=== PATIENT | female | born 1995 | race Caucasian/White ===

== ENCOUNTER 2018-11-08 05:05 | Emergency (ER) | payer SELFPAY ==
[~2018-11-08] VITALS: Ht 167.6 cm; Wt 59.0 kg
[2018-11-08] MEDS ORDERED: DICYCLOMINE 10 MG (BENTYL) CAP PO STA (05:19)
[2018-11-08] MEDS ORDERED: PANTOPRAZOLE 40 MG (PROTONIX) VIAL IV STA (05:19)
[2018-11-08] MEDS ORDERED: NS IV 1000 ML 1,000 ML IV STA (05:19)
[2018-11-08] MEDS ORDERED: ONDANSETRON 4 MG/2 ML (SDV) Z0FRAN IVP STA (05:19)
--- NOTE | 2018-11-08 05:28 | ED Abdominal Pain ---
General Chief Complaint: Abdominal/GI Problems Stated Complaint: LOWER ABD PAIN Source of Information: Patient (CODY GALVIN MD) History of Present Illness Date Seen by Provider: Nov 08, 2018 Time Seen by Provider: 05:09 Initial Comments 23 yo F presenting with complaints of abdominal pain with nausea and vomiting since yesterday. She states the pain is sharp and cramping in nature. It is more in the middle of her abdomen and is worse with eating and palpation. She denies fever or chills. She has no pain with urination or bowel movements. She has no diarrhea and no dark tarry stools or blood in stool. She denies vaginal discharge or vaginal bleeding. her LMP was 3 weeks ago. She has tried Ibuprofen for the pain but it was not helping. She takes OTC pepcid for acid reflux but it was not helping her pain either. (CODY GALVIN MD) Allergies and Home Medications Allergies Coded Allergies: Penicillins (Verified Allergy, Unknown, 11/08/18) Patient Home Medication List Home Medication List Reviewed: Yes (CODY GALVIN MD) Review of Systems Review of Systems Constitutional: No chills, No fever; malaise EENTM: No Symptoms Reported Respiratory: No Symptoms Reported Cardiovascular: No Symptoms Reported Gastrointestinal: See HPI Genitourinary: See HPI Musculoskeletal: no symptoms reported Skin: no symptoms reported Psychiatric/Neurological: No Symptoms Reported (CODY GALVIN MD) Past Fwrsdub-Nitecl-Yjzons Hx Past Med/Social Hx: Reviewed Nursing Past Med/Soc Hx (CODY GALVIN MD) Patient Social History Recent Foreign Travel: No Contact w/Someone Who Travel: No (CODY GALVIN MD) Past Medical History Section (CODY GALVIN MD) Physical Exam Vital Signs Vital Signs - First Documented 11/08/18 05:16 Temp 98.2 Pulse 76 B/P (MAP) 109/70 (83) Pulse Ox 98 O2 Delivery Room Air (BEBA GUZMAN DO) Vital Signs Capillary Refill : (CODY GALVIN MD) Height/Weight/BMI Height: '" Weight: lbs. oz. kg; BMI Method: General Appearance: WD/WN, no apparent distress HEENT: PERRL/EOMI, normal ENT inspection, pharynx normal Neck: non-tender, full range of motion, supple, normal inspection Respiratory: chest non-tender, lungs clear, normal breath sounds Cardiovascular: normal peripheral pulses, regular rate, rhythm Gastrointestinal: normal bowel sounds, soft, no pulsatile mass; No distended, No guarding, No rebound; tenderness (epigastric and suprapubic); No mass Rectal: deferred Extremities: normal range of motion, non-tender, normal inspection Neurologic/Psychiatric: alert, normal mood/affect, oriented x 3 Skin: normal color, warm/dry (CODY GALVIN MD) Progress/Results/Core Measures Results/Orders Lab Results Laboratory Tests Test 11/08/18 05:20 Range/Units White Blood Count 5.7 4.3-11.0 10^3/uL Red Blood Count 4.13 L 4.35-5.85 10^6/uL Hemoglobin 12.8 11.5-16.0 G/DL Hematocrit 38 35-52 % Mean Corpuscular Volume 93 80-99 FL Mean Corpuscular Hemoglobin 31 25-34 PG Mean Corpuscular Hemoglobin Concent 33 32-36 G/DL Red Cell Distribution Width 12.1 10.0-14.5 % Platelet Count 188 130-400 10^3/uL Mean Platelet Volume 10.6 H 7.4-10.4 FL Neutrophils (%) (Auto) 45 42-75 % Lymphocytes (%) (Auto) 46 H 12-44 % Monocytes (%) (Auto) 6 0-12 % Eosinophils (%) (Auto) 3 0-10 % Basophils (%) (Auto) 1 0-10 % Neutrophils # (Auto) 2.6 1.8-7.8 X 10^3 Lymphocytes # (Auto) 2.6 1.0-4.0 X 10^3 Monocytes # (Auto) 0.3 0.0-1.0 X 10^3 Eosinophils # (Auto) 0.1 0.0-0.3 10^3/uL Basophils # (Auto) 0.1 0.0-0.1 10^3/uL Urine Color YELLOW Urine Clarity CLEAR Urine pH 6 5-9 Urine Specific [place] 1.020 1.016-1.022 Urine Protein NEGATIVE NEGATIVE Urine Glucose (UA) NEGATIVE NEGATIVE Urine Ketones NEGATIVE NEGATIVE Urine Nitrite NEGATIVE NEGATIVE Urine Bilirubin NEGATIVE NEGATIVE Urine Urobilinogen NORMAL NORMAL MG/DL Urine Leukocyte Esterase NEGATIVE NEGATIVE Urine RBC (Auto) NEGATIVE NEGATIVE Urine RBC NONE /HPF Urine WBC NONE /HPF Urine Squamous Epithelial Cells 2-5 /HPF Urine Crystals NONE /LPF Urine Bacteria NEGATIVE /HPF Urine Casts NONE /LPF Urine Mucus NEGATIVE /LPF Urine Culture Indicated NO Urine Test NEGATIVE NEGATIVE Sodium Level 141 135-145 MMOL/L Potassium Level 3.9 3.6-5.0 MMOL/L Chloride Level 105 98-107 MMOL/L Carbon Dioxide Level 24 21-32 MMOL/L Anion Gap 12 5-14 MMOL/L Blood Urea Nitrogen 8 7-18 MG/DL Creatinine 0.78 0.60-1.30 MG/DL Estimat Glomerular Filtration Rate > 60 BUN/Creatinine Ratio 10 Glucose Level 101 70-105 MG/DL Calcium Level 9.2 8.5-10.1 MG/DL Corrected Calcium 9.0 8.5-10.1 MG/DL Total Bilirubin 0.7 0.1-1.0 MG/DL Aspartate Amino Transf (AST/SGOT) 15 5-34 U/L Alanine Aminotransferase (ALT/SGPT) 13 0-55 U/L Alkaline Phosphatase 44 40-136 U/L Total Protein 7.5 6.4-8.2 GM/DL Albumin 4.3 3.2-4.5 GM/DL Lipase 36 8-78 U/L (BEBA GUZMAN DO) My Orders Orders - BEBA GUZMAN DO Ct Abdomen/Pelvis W (11/08/18 06:13) Hydrocodone/Apap 5/325 Tablet (Lortab 5 (11/08/18 06:15) Ketorolac Injection (Toradol Injection) (11/08/18 06:15) Iohexol Injection (Omnipaque 350 Mg/Ml 1 (11/08/18 06:30) Received Contrast (Hold Metformin- Contr (11/08/18 06:30) Sodium Chloride Flush (Catheter Flush Sy (11/08/18 06:30) Ns (Ivpb) (Sodium Chloride 0.9% Ivpb Bag (11/08/18 06:30) (BEBA GUZMAN DO) Medications Given in ED Current Medications Medications Dose Ordered Sig/Mar[place] Route Start Time Stop Time Status Last Admin Dose Admin Acetaminophen/ Hydrocodone Bitart 1 tab ONCE ONCE PO 11/08/18 06:15 11/08/18 06:16 DC 11/08/18 06:19 1 TAB Iohexol 100 ml ONCE ONCE IV 11/08/18 06:30 11/08/18 06:31 DC 11/08/18 06:59 100 ML Ketorolac Tromethamine 15 mg ONCE ONCE IVP 11/08/18 06:15 11/08/18 06:16 DC 11/08/18 06:19 15 MG Sodium Chloride 10 ml NEEDED PRN IV 11/08/18 06:30 11/08/18 07:00 10 ML Sodium Chloride 100 ml ONCE ONCE IV 11/08/18 06:30 11/08/18 06:31 DC 11/08/18 07:00 80 ML (BEBA GUZMAN DO) Vital Signs/I&O 11/08/18 05:16 Temp 98.2 Pulse 76 B/P (MAP) 109/70 (83) Pulse Ox 98 O2 Delivery Room Air (BEBA GUZMAN DO) Progress Progress Note #1: Time: 05:16 Progress Note check labs and urinalysis. Will give IVF for hydration, Bentyl and protonix for pain, Zofran for nausea. Progress Note #2: Time: 06:00 Progress Note Care passed to Dr. Guzman at shift change pending labs and final disposition. CBC does not show any acute abnormality to account for her symptoms. UA is also normal and negative test. (CODY GALVIN MD) Progress Note : Progress Note Megan - tanesha care at 6 AM and I went over labs and urinalysis with patient and told her that all the results are normal this time. She says she is still having considerable pain primarily in her umbilical and left lower quadrant region and should have tenderness to palpation. Given she hasn't had any improvement in her pain and she has pain on exam I went ahead and did a CT which showed no acute findings however she does have considerable constipation. I discussed treatment for this and all incidental findings and the need for follo w-up. I told patient to try magnesium citrate and MiraLAX and Dulcolax [id number] as well as enemas to get herself cleaned out and then follow primary care provider in 2-3 days and come back to the ED sooner if worsening pain fevers vomiting or other general concerns. Patient aware and agreeable with plan for discharge and verbalized understanding of the need for follow-up and strict ER return precautions discussed as above. (MEGAN,BEBA M DO) Transfer of Care Time: 06:00 Care transferred to: Dr. Guzman pending labs and final disposition (CODY GALVIN MD) Departure Impression Primary Impression: Epigastric abdominal pain Additional Impressions: Abdominal pain Constipation Disposition: HOME, SELF-CARE Condition: Stable Departure-Patient Inst. Referrals: NO,LOCAL PHYSICIAN (PCP) Primary Care Physician Patient Instructions: Constipation, Adult (DC) Add. Discharge Instructions: All discharge instructions reviewed with patient and/or family. Voiced understanding. Use OTC Dulcolax, Magnesium Citrate, and Miralax. You can also use enemas. Come back with any concerns. Thank you! Scripts Dicyclomine HCl (Bentyl) 20 Mg/2 Ml Inj 20 MG PO TID PRN for PAIN-MODERATE TO SEVERE, #14 TAB Prov: BEBA GUZMAN DO 11/08/18 Work/School Note: Work Release Form Date Seen in the Emergency Department: Nov 08, 2018 Return to Work: Nov 09, 2018 CODY GALVIN MD Nov 08, 2018 05:28 BEBA GUZMAN DO Nov 08, 2018 07:51
[2018-11-08] MEDS ORDERED: DICYCLOMINE 10 MG/ML (BENTYL) 2 ML AMP IM STA (05:32)
[2018-11-08 05:36] LABS: BASOPHILS % (AUTO) 1 % (0-10); EOSINOPHILS % (AUTO) 3 % (0-10); HEMATOCRIT 38 % (35-52); HEMOGLOBIN 12.8 G/DL (11.5-16.0); LYMPHOCYTES % (AUTO) 46 % (12-44); MEAN CORPUSCULAR HEMOGLOBIN 31 PG (25-34); MEAN CORPUSCULAR HGB CONC 33 G/DL (32-36); MEAN CORPUSCULAR VOLUME 93 FL (80-99); MEAN PLATELET VOLUME 10.6 FL (7.4-10.4); MONOCYTES % (AUTO) 6 % (0-12); NEUTROPHILS % (AUTO) 45 % (42-75); PLATELET COUNT 188 10^3/uL (130-400); RED CELL DISTRIBUTION WIDTH 12.1 % (10.0-14.5); WHITE BLOOD COUNT 5.7 10^3/uL (4.3-11.0)
[2018-11-08 05:37] LABS: BASOPHILS # (AUTO) 0.1 10^3/uL (0.0-0.1); EOSINOPHILS # (AUTO) 0.1 10^3/uL (0.0-0.3); LYMPHOCYTES # (AUTO) 2.6 X 10^3 (1.0-4.0); MONOCYTES # (AUTO) 0.3 X 10^3 (0.0-1.0); NEUTROPHILS # (AUTO) 2.6 X 10^3 (1.8-7.8)
[2018-11-08 05:42] LABS: BACTERIA,URINE NEGATIVE /HPF; BILIRUBIN,URINE NEGATIVE (NEGATIVE); CLARITY,URINE CLEAR; COLOR,URINE YELLOW; GLUCOSE, URINE (UA) NEGATIVE (NEGATIVE); KETONES,URINE NEGATIVE (NEGATIVE); LEUKOCYTE ESTERASE ,URINE NEGATIVE (NEGATIVE); NITRITE,URINE NEGATIVE (NEGATIVE); PH,URINE 6 (5-9); PROTEIN,URINE NEGATIVE (NEGATIVE); UROBILINOGEN,URINE NORMAL (NORMAL)
[2018-11-08 05:43] LABS: HCG,QUALITATIVE URINE NEGATIVE (NEGATIVE)
[2018-11-08 05:57] LABS: BUN/CREATININE RATIO 10; CALCIUM 9.2 MG/DL (8.5-10.1); CARBON DIOXIDE 24 MMOL/L (21-32); CHLORIDE 105 MMOL/L (98-107); CREATININE SERUM 0.78 MG/DL (0.60-1.30); GFR ESTIMATED > 60; GLUCOSE 101 MG/DL (70-105); POTASSIUM 3.9 MMOL/L (3.6-5.0); SODIUM 141 MMOL/L (135-145)
[2018-11-08 05:58] LABS: ALANINE AMINOTRANSFERASE 13 U/L (0-55); ALBUMIN 4.3 GM/DL (3.2-4.5); ALKALINE PHOSPHATASE 44 U/L (40-136); BILIRUBIN,TOTAL 0.7 MG/DL (0.1-1.0); LIPASE 36 U/L (8-78); TOTAL PROTEIN 7.5 GM/DL (6.4-8.2)
[2018-11-08] MEDS ORDERED: KETOROLAC 15 MG/ML VIAL IVP ONE (06:15)
[2018-11-08] MEDS ORDERED: HYDROcodone/APAP 5 MG/325 MG (LORTAB) TAB PO ONE (06:15)
[2018-11-08] MEDS ORDERED: HOLD METFORMIN - RECEIVED CONTRAST 20 ML VIAL IV SCH (06:30)
[2018-11-08] MEDS ORDERED: CATHETER FLUSH 10 ML SYR IV PRN (06:30)
[2018-11-08] MEDS ORDERED: IOHEXOL 350 MG/ML 100 ML (OMNIPAQUE 350) VIAL IV ONE (06:30)
[2018-11-08] MEDS ORDERED: NS 100 ML (IVPB) BAG IV ONE (06:30)
--- NOTE | 2018-11-08 06:55 | NUR ---
Report from Valentina HARRIS. Pt is in CT.
--- NOTE | 2018-11-08 07:05 | NUR ---
Returned from CT, pt states doing better. Pain rated "6"/10 down from "10"/10. SL intact
--- NOTE | 2018-11-08 07:32 | Diagnostic Imaging Report ---
PROCEDURE: CT abdomen and pelvis with contrast. TECHNIQUE: Multiple contiguous axial images were obtained through the abdomen and pelvis after administration of intravenous contrast. Auto Exposure Controls were utilized during the CT exam to meet ALARA standards for radiation dose reduction. INDICATION: Nausea and vomiting with abdominal pain. FINDINGS: Lung bases are clear. There is hepatomegaly with hepatic steatosis. Gallbladder and bile ducts are not dilated. The pancreas and spleen appear normal. The adrenal glands and kidneys are normal. There is normal enhancement of the abdominal organs and vessels following IV contrast. The stomach is not distended. There is some thickening of the gastric wall, though this may be due to lack of distention. Gastroenteritis cannot be excluded. The small bowel is fluid-filled though does not appear obstructed. Colon shows considerable stool throughout from the cecum to the rectum. No intra-abdominal adenopathy of pathologic size. Appendix is normal. No evidence of diverticulitis. There does appear to be mild pelvic venous congestion. No bony lesion. IMPRESSION: 1. Considerable stool throughout the colon from the cecum to the rectum consistent with constipation. 2. Fluid-filled loops of small bowel consistent with ileus without evidence of transition zone to suggest small bowel obstruction. 3. Appendix is visualized and normal. 4. Hepatomegaly with hepatic steatosis. Dictated by: Dictated on workstation # [id number]
[2018-11-08] MEDS ORDERED: DCCL10A2 PO (07:51)
[2018-11-08 07:55] VITALS: BP 96/61
--- NOTE | 2018-11-08 07:55 | NUR ---
Pt discharged to home after review of home instructions verbalized as understood. Pt has Rx script handed to her and work note release till tomorrow.
== END 2018-11-08 07:55 | disposition home or self-care (01) ==
LOC: ER FS 05:08
DX: K59.00 Constipation, unspecified (principal); R10.13 Epigastric pain; K21.9 Gastro-esophageal reflux disease without esophagitis; Z88.0 Allergy status to penicillin
CPT/HCPCS: 36415; 74177; 80053; 81000; 83690; 84703; 85025

== ENCOUNTER 2019-11-17 10:57 | Emergency (ER) | payer SELFPAY ==
[~2019-11-17] VITALS: Ht 195.5 cm; Wt 63.3 kg
[~2019-11-17 10:57] MED LIST: DCCL10A2 PO
[2019-11-17 11:00] VITALS: BP 117/65
--- NOTE | 2019-11-17 11:20 | ED GU-Female ---
General Chief Complaint: Female Reproductive Stated Complaint: ABD PAIN;BLOODY URINE;POSITIVE PREG. TEST 11/15 Source: patient Exam Limitations: no limitations History of Present Illness Date Seen by Provider: Nov 17, 2019 Time Seen by Provider: 11:12 Initial Comments 24-year-old female presents with dysuria, what looks like blood in her urine. I'm lower abdominal cramping especially his suprapubic. She reports she took a home test yesterday that she thinks might have been positive. She denies any nausea vomiting fevers chills or other systemic complaints. Her last menstrual period was 10/16/19. Allergies and Home Medications Allergies Coded Allergies: Penicillins (Verified Allergy, Unknown, 11/08/18) Home Medications Famotidine 20 Mg Tablet, 20 MG PO DAILY, (Reported) Multivitamin 1 Each Tablet, 1 EACH PO DAILY, (Reported) Patient Home Medication List Home Medication List Reviewed: Yes Review of Systems Review of Systems Constitutional: No chills, No fever; malaise Respiratory: no symptoms reported Cardiovascular: no symptoms reported Gastrointestinal: see HPI; No constipation, No nausea, No vomiting Genitourinary: see HPI, burning, hematuria LMP: Oct 16, 2019 Musculoskeletal: no symptoms reported Skin: no symptoms reported Psychiatric/Neurological: No Symptoms Reported Endocrine: No Symptoms Reported Past Yhwybxh-Nxhxeb-Odurfu Hx Past Med/Social Hx: Reviewed Nursing Past Med/Soc Hx Patient Social History Alcohol Use: Denies Use Recreational Drug Use: No Smoking Status: Never a Smoker 2nd Hand Smoke Exposure: No Recent Hopitalizations: No Physical Abuse: No Sexual Abuse: No Mistreated: No Fear: No Seasonal Allergies Seasonal Allergies: No Past Medical History Surgeries: Yes (C/S x 1) Section Respiratory: No Cardiac: No Neurological: No Hx : 1 Hx Para: 1 Genitourinary: No Gastrointestinal: Yes Gastroesophageal Reflux, Hiatal Hernia Musculoskeletal: No Endocrine: No HEENT: No Cancer: No Psychosocial: No Integumentary: No Blood Disorders: No Physical Exam Vital Signs Vital Signs - First Documented 11/17/19 11:00 Temp 37.2 Pulse 107 Resp 20 B/P (MAP) 117/65 (82) Pulse Ox 100 O2 Delivery Room Air Capillary Refill : Height, Weight, BMI Height: 5'6.00" Weight: 130lbs. oz. 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, no motor/sensory deficits, oriented x 3 Skin: normal color, warm/dry Lymphatic: no adenopathy Progress/Results/Core Measures Suspected Sepsis SIRS Temperature: Pulse: Respiratory Rate: Blood Pressure / Mean: Results/Orders Lab Results Laboratory Tests Test 11/17/19 11:05 Range/Units Urine Color YELLOW Urine Clarity CLEAR Urine pH 6.0 5-9 Urine Specific [place] 1.025 H 1.016-1.022 Urine Protein NEGATIVE NEGATIVE Urine Glucose (UA) NEGATIVE NEGATIVE Urine Ketones NEGATIVE NEGATIVE Urine Nitrite NEGATIVE NEGATIVE Urine Bilirubin NEGATIVE NEGATIVE Urine Urobilinogen 0.2 < = 1.0 MG/DL Urine Leukocyte Esterase NEGATIVE NEGATIVE Urine RBC (Auto) 3+ H NEGATIVE Urine RBC 10-25 H /HPF Urine WBC NONE /HPF Urine Squamous Epithelial Cells 0-2 /HPF Urine Crystals NONE /LPF Urine Bacteria NONE /HPF Urine Casts NONE /LPF Urine Mucus TRACE /LPF Urine Culture Indicated NO My Orders Orders - DALE,RC L DO Ua Culture If Indicated (11/17/19 11:02) Urine Bedside (11/17/19 11:02) Vital Signs/I&O 11/17/19 11:00 Temp 37.2 Pulse 107 Resp 20 B/P (MAP) 117/65 (82) Pulse Ox 100 O2 Delivery Room Air Capillary Refill : Progress Note : Time: 11:36 Progress Note Patient has a negative test and UA that shows RBCs. I suspect the patient's likely urinary started her menses. I did discuss with her using some Azo she's having some bladder spasms. Patient is otherwise stable and will be discharged home. Departure Impression Primary Impression: examination or test, negative result Additional Impressions: Late menses Hematuria Qualified Codes: R31.9 - Hematuria, unspecified Disposition: 01 HOME, SELF-CARE Condition: Stable Departure-Patient Inst. Referrals: NO,LOCAL PHYSICIAN (PCP/Family) Primary Care Physician Patient Instructions: Blood in the Urine (Hematuria) in Adults, Menstrual Cramps (DC) Add. Discharge Instructions: you may use [id number] Pyridium or Azo to help with bladder spasm The emergency department focuses on treating and ruling out life threatening diseases. Whenever possible, a diagnosis is given. However, most patients are given and impression based on the history, physical exam, and workup during her brief time in the ER. Information about probable diagnosis and other education material has been provided. Please take time to read and understand this information. It is very important that you follow up with a doctor as discussed during her visit today. Failure to adhere to your follow-up instructions mainly due to severe disability, injury, or so please make sure and keep her appointments. Please keep in mind the emergency department is not designed to be her primary care or "family doctor" and non-urgent issues are best evaluated by an outpatient physician All discharge instructions reviewed with patient and/or family. Voiced understanding. RC DALE DO Nov 17, 2019 11:20
[2019-11-17] MEDS ORDERED: FAMO-119 PO (11:21)
[2019-11-17] MEDS ORDERED: MULT-1136 PO (11:21)
[2019-11-17 11:23] LABS: BILIRUBIN,URINE NEGATIVE (NEGATIVE); CLARITY,URINE CLEAR; COLOR,URINE YELLOW; GLUCOSE, URINE (UA) NEGATIVE (NEGATIVE); KETONES,URINE NEGATIVE (NEGATIVE); LEUKOCYTE ESTERASE ,URINE NEGATIVE (NEGATIVE); NITRITE,URINE NEGATIVE (NEGATIVE); PROTEIN,URINE NEGATIVE (NEGATIVE); SQUAMOUS EPITHELIAL CELL,UR 0-2 /HPF
== END 2019-11-17 11:40 | disposition home or self-care (01) ==
LOC: EDUNIT# 10:57 → ER FS 10:58
DX: Z32.02 Encounter for pregnancy test, result negative (principal); N92.6 Irregular menstruation, unspecified; R31.9 Hematuria, unspecified; K21.9 Gastro-esophageal reflux disease without esophagitis; Z88.0 Allergy status to penicillin
CPT/HCPCS: 81000; 84703; 99282